=== PATIENT | male | born 1990 | race Caucasian/White ===

== ENCOUNTER 2019-04-14 06:58 | Emergency (ER) | payer MEDICAID ==
[~2019-04-14] VITALS: Ht 185.4 cm; Wt 80.3 kg
[2019-04-14 07:23] VITALS: BP 126/81
[2019-04-14] MEDS ORDERED: KETOROLAC TROMETH 60MG/2ML VIAL IM ONE (08:00)
== END 2019-04-14 08:28 | disposition home or self-care (01) ==
LOC: ER 06:58
DX: K04.7 Periapical abscess without sinus (principal); F17.210 Nicotine dependence, cigarettes, uncomplicated
CPT/HCPCS: 96372; 99283; J1885